=== PATIENT | female | born 1950 | race Caucasian/White ===

== ENCOUNTER → 2016-06-17 | Outpatient (CLI) | payer MEDICARE, BC | LOC: COL.PUL 13:00 | DX: R05 Cough (principal); R06.02 Shortness of breath | CPT/HCPCS: J7674 ==

== ENCOUNTER 2017-10-08 14:04 | Outpatient (CLI) | payer MEDICARE, BC ==
[~2017-10-08] VITALS: Ht 165.1 cm; Wt 71.0 kg
[2017-10-08 14:38] VITALS: BP 122/71; PULSE 65; TEMP 98.5
[2017-10-08] MEDS ORDERED: ZOLOFT 50MG50 MG PO (14:53)
[2017-10-08] MEDS ORDERED: ATIVAN 0.50.5 MG/TAB PO (14:54)
[2017-10-08] MEDS ORDERED: AMBIEN 5MG TABLE5 MG PO (14:54)
[2017-10-08] MEDS ORDERED: LIPITOR20 MG PO (14:55)
[2017-10-08] MEDS ORDERED: NORVASC 5MG5 MG/TAB PO (14:55)
[2017-10-08] MEDS ORDERED: ZYRTEC5 MG PO (14:56)
== END 2017-10-08 15:33 | disposition home health service (06) ==
LOC: EUO 14:04
DX: D72.1 Eosinophilia (principal); Z79.899 Other long term (current) drug therapy
CPT/HCPCS: J2182

== ENCOUNTER 2017-11-05 14:13 | Outpatient (CLI) | payer MEDICARE, BC ==
[~2017-11-05] VITALS: Ht 165.1 cm; Wt 68.0 kg
[~2017-11-05 14:13] MED LIST: AMBIEN 5MG TABLE5 MG PO; ATIVAN 0.50.5 MG/TAB PO; LIPITOR20 MG PO; NORVASC 5MG5 MG/TAB PO; ZOLOFT 50MG50 MG PO; ZYRTEC5 MG PO
[2017-11-05 14:47] VITALS: BP 148/75; PULSE 60; TEMP 98.6
== END 2017-11-05 16:22 | disposition home or self-care (01) ==
LOC: EUO 14:13
DX: D72.1 Eosinophilia (principal)
CPT/HCPCS: J2182

== ENCOUNTER 2017-12-03 13:14 | Outpatient (CLI) | payer MEDICARE, BC ==
[~2017-12-03] VITALS: Ht 165.1 cm; Wt 69.3 kg
[2017-12-03 14:21] VITALS: BP 128/70; PULSE 76; TEMP 98.3
== END 2017-12-03 14:21 | disposition home or self-care (01) ==
LOC: EUO 13:14
DX: D72.1 Eosinophilia (principal); Z79.899 Other long term (current) drug therapy
CPT/HCPCS: J2182

== ENCOUNTER 2018-01-01 08:32 | Outpatient (CLI) | payer MEDICARE, BC ==
[~2018-01-01] VITALS: Ht 165.1 cm; Wt 69.2 kg
[2018-01-01 09:22] VITALS: BP 129/75; PULSE 66; TEMP 98.6
== END 2018-01-01 09:28 | disposition home or self-care (01) ==
LOC: EUO 08:32
DX: D72.1 Eosinophilia (principal); Z79.899 Other long term (current) drug therapy
CPT/HCPCS: J2182

== ENCOUNTER 2018-01-29 15:17 | Outpatient (CLI) | payer MEDICARE, BC ==
[~2018-01-29] VITALS: Ht 165.1 cm; Wt 70.5 kg
[2018-01-29 15:39] VITALS: BP 143/60; PULSE 61; TEMP 97.9
== END 2018-01-29 16:07 | disposition home or self-care (01) ==
LOC: EUO 15:17
DX: D72.1 Eosinophilia (principal); J34.2 Deviated nasal septum; J32.9 Chronic sinusitis, unspecified; Z79.899 Other long term (current) drug therapy
CPT/HCPCS: J2182

== ENCOUNTER 2018-03-03 13:00 | Outpatient (CLI) | payer MEDICARE, BC ==
[~2018-03-03] VITALS: Ht 165.1 cm; Wt 60.9 kg
[2018-03-03 13:00] VITALS: BP 127/66; PULSE 68; TEMP 97.9
== END 2018-03-03 13:30 | disposition home or self-care (01) ==
LOC: EUO 13:00
DX: D72.1 Eosinophilia (principal); Z79.899 Other long term (current) drug therapy
CPT/HCPCS: J2182

== ENCOUNTER 2018-03-31 13:17 | Outpatient (CLI) | payer MEDICARE, BC ==
[~2018-03-31] VITALS: Ht 165.1 cm; Wt 70.0 kg
[2018-03-31 13:31] VITALS: BP 149/75; PULSE 75; TEMP 98.6
== END 2018-03-31 14:40 | disposition home or self-care (01) ==
LOC: EUO 13:17
DX: D72.1 Eosinophilia (principal); Z79.899 Other long term (current) drug therapy
CPT/HCPCS: J2182

== ENCOUNTER 2018-05-24 14:59 | Outpatient (CLI) | payer MEDICARE, BC ==
[~2018-05-24] VITALS: Ht 165.1 cm; Wt 69.0 kg
[2018-05-24 15:19] VITALS: BP 127/56; PULSE 81; TEMP 98.3
--- NOTE | 2018-05-24 15:38 | NUR ---
Pt jolanta mclaughlin well. Pt discharged per ambulation.
== END 2018-05-24 15:39 | disposition home or self-care (01) ==
LOC: EUO 14:59
DX: D72.1 Eosinophilia (principal); Z79.899 Other long term (current) drug therapy
CPT/HCPCS: J2182

== ENCOUNTER 2018-06-21 13:11 | Outpatient (CLI) | payer MEDICARE, BC ==
[~2018-06-21] VITALS: Ht 165.1 cm; Wt 70.0 kg
[2018-06-21] MEDS ORDERED: FOSAMAX 70MG TA70 MG PO (13:46)
[2018-06-21 13:47] VITALS: BP 142/71; PULSE 66; TEMP 98.6
== END 2018-06-21 15:12 | disposition home or self-care (01) ==
LOC: EUO 13:11
DX: D72.1 Eosinophilia (principal); Z79.899 Other long term (current) drug therapy
CPT/HCPCS: J2182

== ENCOUNTER 2019-12-21 06:44 | Emergency (ER) | payer MEDICARE, BC ==
[~2019-12-21] VITALS: Ht 160 cm; Wt 67.3 kg
[~2019-12-21 06:44] MED LIST changes: +FOSAMAX 70MG TA70 MG PO
[2019-12-21 06:56] VITALS: TEMP 98.1
[2019-12-21] MEDS ORDERED: ZITHROMAX 250M250 MG PO (07:48)
[2019-12-21 09:39] VITALS: BP 131/53; PULSE 62
== END 2019-12-21 09:39 | disposition home or self-care (01) ==
LOC: COL.ER 06:44
DX: J06.9 Acute upper respiratory infection, unspecified (principal); Z20.828 Contact with and (suspected) exposure to other viral communicable diseases; Z79.899 Other long term (current) drug therapy

== ENCOUNTER → 2020-07-13 | Outpatient (CLI) | payer MEDICARE, BC ==
[~2020-07-13] MED LIST changes: +AMOXICILLIN 8751 TAB PO; +ASPERCREME1 EACH TP; +FLEXERIL 1010 MG/TAB PO; +ZITHROMAX 250M250 MG PO; +ZOFRAN ODT4 MG PO
== END ==
LOC: COL.RAD 14:01
DX: M25.551 Pain in right hip (principal); M53.3 Sacrococcygeal disorders, not elsewhere classified; R10.2 Pelvic and perineal pain
CPT/HCPCS: G0260; J3301

== ENCOUNTER 2020-11-02 09:34 | Emergency (ER) | payer MEDICARE, BC ==
[~2020-11-02] VITALS: Ht 162.6 cm; Wt 60.9 kg
[~2020-11-02 09:34] MED LIST changes: -AMOXICILLIN 8751 TAB PO; -ASPERCREME1 EACH TP; -FLEXERIL 1010 MG/TAB PO; -ZOFRAN ODT4 MG PO
[2020-11-02 09:39] VITALS: TEMP 98.7
[2020-11-02] MEDS ORDERED: ASPERCREME1 EACH TP (11:47)
[2020-11-02] MEDS ORDERED: FLEXERIL 1010 MG/TAB PO (11:47)
[2020-11-02 12:08] VITALS: BP 126/88; PULSE 78
== END 2020-11-02 12:09 | disposition home or self-care (01) ==
LOC: COL.ER 09:34
DX: M54.9 Dorsalgia, unspecified (principal); G89.29 Other chronic pain; J45.909 Unspecified asthma, uncomplicated; Z90.49 Acquired absence of other specified parts of digestive tract; Z88.6 Allergy status to analgesic agent

== ENCOUNTER 2020-12-22 18:23 | Emergency (ER) | payer MEDICARE, BC ==
[~2020-12-22] VITALS: Ht 162.6 cm; Wt 55.0 kg
[~2020-12-22 18:23] MED LIST changes: +ASPERCREME1 EACH TP; +FLEXERIL 1010 MG/TAB PO
[2020-12-22 20:02] LABS: BASO # 0.1 K/mm3 (0.0-0.2); EOS # 0.3 K/mm3 (0.0-0.7); EOS % 4.2 % (0-4.0); GRAN # 3.9 K/mm3 (1.4-6.5); GRAN % 56.8 % (42.2-75.2); HEMATOCRIT 38.3 % (37.0-47.0); HEMOGLOBIN 12.3 g/dl (12.5-16.0); LYMPH % 29.5 % (20.0-51.0); MEAN CELL VOLUME 86 fl (80.0-100.0); MEAN CORPUSCULAR HEMOGLOBIN 28 pg (27.0-31.0); MEAN CORPUSCULAR HGB CONC 32 g/dl (33.0-37.0); MEAN PLATELET VOLUME 10.5 fl (7.4-10.4); MONO # 0.6 K/mm3 (0.1-0.6); MONO % 8.2 % (1.7-9.3); PLATELET COUNT 247 K/mm3 (130-400); RED BLOOD COUNT 4.44 M/mm3 (4.10-5.30); REDCELL DISTRIBUTION WIDTH-CV 14.2 % (11.5-14.5)
[2020-12-22 20:22] LABS: BILIRUBIN,TOTAL 0.4 mg/dL (0.2-1.2); CALCIUM 10.2 mg/dL (8.4-10.2); CREATININE, serum 1.29 mg/dL (0.57-1.11); POTASSIUM 4.2 mmol/L (3.5-4.5); TOTAL PROTEIN 8.2 gm/dL (6.2-8.1)
[2020-12-22 21:23] LABS: COLLECTION METHOD CLEAN CATCH
[2020-12-22 21:29] LABS: MUCOUS Present /lpf; PH 6 (5-8); SQUAMOUS EPITHELIAL 0-2 /hpf; URINE APPEARANCE Clear; URINE BACTERIA None Seen /hpf; URINE BILIRUBIN Negative (NEGATIVE); URINE BLOOD 1+ (NEGATIVE); URINE COLOR Straw; URINE GLUCOSE Negative (NEGATIVE); URINE KETONE 1+ (NEGATIVE); URINE LEUKOCYTE ESTERASE Negative (NEGATIVE); URINE NITRATE Negative (NEGATIVE); URINE PROTEIN(semi-quant) Negative (NEGATIVE); URINE UROBILINOGEN Negative (NEGATIVE)
[2020-12-22] MEDS ORDERED: AMOXICILLIN 8751 TAB PO (22:20)
[2020-12-22] MEDS ORDERED: ZOFRAN ODT4 MG PO (22:20)
[2020-12-22 22:32] VITALS: BP 122/60; PULSE 64; TEMP 98.6
== END 2020-12-22 22:40 | disposition home or self-care (01) ==
LOC: COL.ER 18:23
PROVIDERS: Emergency Medicine
DX: N17.9 Acute kidney failure, unspecified (principal); K52.9 Noninfective gastroenteritis and colitis, unspecified; I10 Essential (primary) hypertension; E78.5 Hyperlipidemia, unspecified; F32.A Depression, unspecified; F41.9 Anxiety disorder, unspecified; Z79.899 Other long term (current) drug therapy
CPT/HCPCS: J2405; J7030; Q9967

== ENCOUNTER 2021-09-07 07:34 | Emergency (ER) | payer MEDICARE, BC ==
[~2021-09-07] VITALS: Ht 160 cm; Wt 60.0 kg
[~2021-09-07 07:34] MED LIST changes: +AMOXICILLIN 8751 TAB PO; +ZOFRAN ODT4 MG PO
[2021-09-07 07:41] VITALS: TEMP 98.2
[2021-09-07] MEDS ORDERED: ROXICODONE 55 MG/TAB PO (07:57)
[2021-09-07] MEDS ORDERED: ZOFRAN ODT4 MG PO (07:58)
[2021-09-07 08:08] VITALS: BP 109/89; PULSE 69
== END 2021-09-07 08:06 | disposition home or self-care (01) ==
LOC: COL.ER 07:34
DX: M54.50 Low back pain, unspecified (principal); M25.511 Pain in right shoulder; Z88.5 Allergy status to narcotic agent; X58.XXXA Exposure to other specified factors, initial encounter